=== PATIENT | female | born 1995 | race Caucasian/White ===

== ENCOUNTER → 2018-06-15 15:31 | Outpatient (CLI) | payer OTHER, SELFPAY ==
[2018-06-15 16:07] LABS: ROM Internal Control Test YES-OK TO RESULT pt. (Internal QC); ROM Patient Test Negative (Negative)
== END ==
LOC: LABSPEC 15:32
PROVIDERS: Visit Provider Obstetrics & Gynecology
DX: Z34.83 Encounter for supervision of other normal pregnancy, third trimester (principal)
CPT/HCPCS: 84112

== ENCOUNTER → 2018-06-19 15:20 | Outpatient (CLI) | payer OTHER, SELFPAY ==
[2018-06-19 15:51] LABS: ROM Internal Control Test YES-OK TO RESULT pt. (Internal QC); ROM Patient Test Negative (Negative)
== END ==
PROVIDERS: Visit Provider Obstetrics & Gynecology
DX: Z34.83 Encounter for supervision of other normal pregnancy, third trimester (principal)
CPT/HCPCS: 84112

== ENCOUNTER 2018-07-08 13:15 | Outpatient (CLI) | payer OTHER, MEDICAID, SELFPAY ==
[2018-07-08 14:44] VITALS: BMI 27.8
--- NOTE | 2018-07-10 07:58 | OB.TRI.NOTE ---
History of Present Illness Date of Service: 07/08/18 Was patient seen by the physician?: No Reason For Visit: R/O LABOR Date of Service: 07/08/18 Final FLAVIO: 07/12/18 Gestational age: 39 Weeks and 3 Days History of Present Illness: 22 yo female presents for labor check after working. States cramping. No vaginal bleeding. no ROM. Allergies No Known Allergies Allergy (Verified 07/08/18 14:45) Physical Exam Cervix Dilation (cm): 1 - no change after observation Station: -2 NST - FHR Rate Baby A Baseline: 110-120 avg variability. Accels to 160s Variability:: Moderate Accelerations:: 15 x 15 Decelerations:: None NST Reactive:: Yes, Appropriate for gestational age FHR Category:: Category I Uterine Activity:: UCs q 1 1/2 - 7 mins Impression/Plan 38 3/7 wk EGA. reactive NST False labor Home, rest and comfort measures reviewed. RTO as planned Return to [facility] if inc s/sx of labor.
== END 2018-07-08 15:00 | disposition home or self-care (01) ==
LOC: WPOUT 13:43 → WP 13:45
PROVIDERS: Family Provider Family Medicine; PCP Family Medicine; Visit Provider Obstetrics & Gynecology
DX: O47.1 False labor at or after 37 completed weeks of gestation (principal); Z3A.39 39 weeks gestation of pregnancy
CPT/HCPCS: 59025; 59050; 99218; G0378

== ENCOUNTER 2018-07-14 02:15 | Outpatient (CLI) | payer OTHER, MEDICAID, SELFPAY ==
[2018-07-14 02:29] VITALS: BMI 28.2
[2018-07-14 04:00] VITALS: RESP 18
--- NOTE | 2018-07-21 01:52 | OB.TRI.NOTE ---
History of Present Illness Date of Service: 07/14/18 Was patient seen by the physician?: No Reason For Visit: R/O LABOR Final FLAVIO: 07/12/18 Gestational age: 40 Weeks and 2 Days History of Present Illness: 22yo G1 @ 40 2/7wga with Cat I FHR -SVE unchanged x 2 -d/c home Allergies No Known Allergies Allergy (Verified 07/15/18 22:42) Physical Exam Vitals: Vital Signs Resp 18 07/14/18 04:00 NST - FHR Rate Baby A Baseline: 125 Variability:: Moderate Accelerations:: 15 x 15 Decelerations:: None NST Reactive:: Yes FHR Category:: Category I Uterine Activity:: 1/10 min
== END 2018-07-14 04:00 | disposition home or self-care (01) ==
LOC: WPOUT 02:26 → WP 02:26
PROVIDERS: Family Provider Family Medicine; PCP Family Medicine; Visit Provider Obstetrics & Gynecology
DX: O47.1 False labor at or after 37 completed weeks of gestation (principal); Z3A.40 40 weeks gestation of pregnancy
CPT/HCPCS: 59025; 59050; 99218; G0378

== ENCOUNTER 2018-07-15 22:55 | Inpatient (IN) | payer OTHER, MEDICAID, SELFPAY ==
[2018-07-15 22:39] VITALS: BMI 27.8
[2018-07-15 22:56] LABS: ROM Internal Control Test YES-OK TO RESULT pt. (Internal QC); ROM Patient Test POSITIVE (Negative)
[2018-07-15] MEDS: Lactated Ringers 1,000 ML 50 ML IV (23:23)
[2018-07-15 23:35] LABS: Hematocrit 31.7 % (37-47); Hemoglobin 10.6 g/dl (12.0-15.0); Mean Corp Hgb Conc 33.4 g/gl (32-36); Mean Corpuscular Volume 89.8 fL (81-99); Platelet Count 281 K/mm3 (150-450); RBC Distribution Width CV 13.4 % (11.6-14.6); RBC Distribution Width SD 43.7 fl (35.1-43.9); Red Blood Count 3.53 M/mm3 (4.2-5.4); White Blood Count 12.4 K/mm3 (4.4-11.0)
[2018-07-15 23:37] LABS: Scan Indicated on CBC? Y/N NO
[2018-07-16] MEDS: Lactated Ringers 1,000 ML 50 ML IV ×3 (01:15→11:41)
[2018-07-16] MEDS: fentaNYL-bupivacaine (epidural) 100 ML BAG EPIDURAL ×3 (01:52→11:41)
[2018-07-16] MEDS: Oxytocin 30 units/NS 500 ml 30 UNITS/500 ML IV.SOLN IV (03:04)
[2018-07-16] MEDS: Mag Hydrox/Al Hydrox/Simeth 30 ML UDC PO (03:48)
[2018-07-16] MEDS: Ondansetron 4 MG/2 ML Vial IV (10:16)
[2018-07-16] MEDS: Acetaminophen 325 MG Tablet PO (10:56)
--- NOTE | 2018-07-16 13:40 | PLAC_PTH ---
PATIENT: LIZ VALDES LOC: WP U#:[id number] AGE/SX: ROOM: WP008 RE07/15/[address]: Dr. Jak Jack MD : 1995 BED: 1 DIS: 07/18/2018 SPEC #: [id number] RECD: 07/16/18 14:27 STATUS: FRANCISCO REQ #: [id number] LATRELL: 07/16/18 13:[address]: Jak Jack DEPT: SURGICAL PATHOLOGY RECD BY: Tomasz Sahu ENTERED: 07/17/18 08:03 SP TYPE: PLACENTA OTHR DR: Dr. Dunia Hawthorne, DO Tissues: Placenta, NOS Procedures: Surgery Specimen Level V HEADER OPERATION: Vaginal delivery PRE-OP DIAGNOSIS: Suspected chorioamnionitis and meconium TISSUE SUBMITTED: Placenta MICROSCOPIC DIAGNOSIS Placenta: Placental disc - third trimester placenta (431 gm). - Focal acute vasculitis of subamniotic blood vessels. - Focal area of peripheral infarction (2.5 cm in greatest dimension). Membranes ? acute chorioamnionitis. Umbilical cord - three blood vessels and acute funisitis. SJ:sandy 07/19/18 MICROSCOPIC DESCRIPTION Slides are reviewed. GROSS DESCRIPTION SPECIMEN: PLACENTA / CLINICAL INFORMATION: A. Weight: 3.042 kg B. Gestational Age: 40 weeks C. Sex: Female PLACENTAL WEIGHT (POST FIXATION): 431 gm PLACENTAL DIMENSIONS: 19 x 14 x 3 cm PLACENTAL SHAPE: Usual ovoid PLACENTAL WEIGHT FOR GESTATIONAL AGE: Within 10-99th percentile. MEMBRANES - Present A. Insertion: Marginal B. Site of rupture from edge: At edge of placental disc C. Color of membrane: Moffett-alcantara D. Abnormalities: None UMBILICAL CORD ? Present, a clamp is noted in the middle portion of the umbilical cord. A. Color: Moffett-alcantara B. Insertion: Central C. Length: 47 cm D. Diameter: 1 cm E. Number of vessels: Three F. Abnormalities: None PLACENTAL DISC - Present A. Color of surface: Moffett-alcantara B. surface abnormalities: A focal area of submembranous blood clot is noted occupying one-third surface of the placenta. C. Maternal cotyledons: Intact with minimal tears D. Attached retro placental clot: No clot E. Cut surface: Dark red and spongy F. Lesions: Sections reveal a focal moffett, indurated area in the peripheral portion of the placenta measuring 2.5 cm in greatest dimension. G. Separate clot: Absent SECTIONS SUBMITTED: 1. Membrane roll 2. Cord, maternal end 3. Cord, end 4. Placental disc, and maternal surfaces, lesion 5. Placental disc, and maternal surfaces 6. Placental disc, and maternal surfaces SCOTTY:sandy 07/18/18 TC:2 CPT: 08152
[2018-07-16] MEDS: Oxytocin 30 units/NS 500 ml 30 UNITS/500 ML IV.SOLN 334 UNITS IV (13:42)
--- NOTE | 2018-07-16 14:04 | PCM.OB.VAG ---
- Problem List (1) Active labor at term Status: Acute Vaginal Delivery Maternal Presentation: Active Labor, Spontaneous Rupture of Membranes Presents at 40w4d ega with SROM at 2100 on 07/15. Uncomplicated . Amniotic Membrane Rupture Type: Spontaneous at home Rupture of Membrane time: 2100 Amniotic Fluid Description: Clear Final FLAVIO: 07/12/18 Final FLAVIO Source: US <20 weeks Gestational age: 40 Weeks and 4 Days doctor who attended delivery (if requested by OB): Rasheeda Ventura Date of Procedure: 07/16/18 Pre-Operative Diagnosis: Labor Post-Operative Diagnosis: same Surgery/ Procedure Performed: Spontaneous Vaginal Delivery Anesthesiologist: William Tay Type of Anesthesia: Epidural Description of Procedure: Juan presented at 40w3d ega with SROM at home. She was 2 cm dilated on admission. Over 13 hours progressed to FD then pushed for less than an hour to deliver a live female . She had developed a fever with tmax of 101.8 in hour before delivery. She was started on ampicillin. Baby did not show signs of chorioamnionitis with no tachycardia noted. There was thick meconium present at delivery. At delivery the mouth was suctioned with a bulb suction. Dr. Ventura was called. Apgars were 7/9. The placenta was delivered spontaneously intact with a centrally located 3VC. It appears meconium stained. Cultures were collected from the a vein of the placental membrane surface. The placenta was sent to pathology for studies. The uterus contracted well. Inspection revealed an intact cervix, upper vagina and perineum. A small first degree posterior tear was repaired with 2-0 vicryl. Presentation: Vertex Placental Delivery Description: Spontaneous Placenta Disposition: Sent to Pathology Percentage of Placenta Abruption: 0 Cord Vessel Description: 3 Vessels Nuchal Cord Compression: Without compression Cord Entanglement: None Drain: Uriostegui to straight drain Estimated Blood Loss: 200cc Infant A gender: Female (1 minute): 7 (5 minute): 9 Episiotomy Description: None Laceration: Midline, Vaginal Extension/lac, 1st degree Medications given after delivery: IV Pitocin Complications: None
[2018-07-16] MEDS: Oxytocin 30 units/NS 500 ml 30 UNITS/500 ML IV.SOLN 167 UNITS IV (14:12)
--- NOTE | 2018-07-16 14:15 | PCM.DCVAG ---
Discharge Diet: No Restrictions Discharge Activity: Return to Normal Activity, May Drive, May Shower Return to work on:: 09/15/18 May shower in (days): 0 May resume sexual activity in: 4-6 weeks Call your doctor if your incision/area has: Sudden Increased Bleeding, Increased Pain/ Swelling, Foul Smelling Discharge Call your doctor if you observe: Fever of 101 or Higher, Inability to urinate, Inability to have a bowel movement, Using more than one pad per hour, Shortness of breath, Chest pain, Calf discomfort, Uncontrolled pain Cleanse incision/area with: Soap & Water Additional Instructions: If you experience any of the following, contact your healthcare provider. Bleeding that soaks a pad every hour for 2 hours Fever 100.4 or higher Unrelieved incision or abdominal pain Swelling, redness, discharge or bleeding from your incision or episiotomy site Your incision begins to separate Problems urinating (including inability to urinate or burning while urinating). Visual changes Severe headache Flu-like symptoms Pain or redness in one of both of your breasts Pain, warmth, tenderness or swelling in your legs, especially the calf area Frequent nausea and vomiting Symptoms of depression or anxiety If you experience any of the following, call 911 or go to the nearest Emergency Room. Chest pain Problems breathing Seizure activity Partial or complete paralysis of a body part, slurred speech, weakness or drooping of the face, or a sudden inability to walk or hold your balance Allergies/Adverse Reactions: Allergies No Known Allergies Allergy (Verified 07/15/18 22:42) Medications to take at Discharge Vit Calc,Iron,Folic [ Vitamins] 1 each PO DAILY 07/14/18 Tums 07/15/18 Ibuprofen 600 mg PO Q6H PRN PRN #30 tab 07/16/18 The following prescriptions were given: Ibuprofen 600 mg PO Q6H PRN PRN #30 tab PRN Reason: pain or cramping Please Follow Up With: Stefania Mari MD When: 6 weeks Primary Care Physician: Dunia Hawthorne DO [Primary Care Provider] - Test Results: Test results from this visit will be discussed in further detail at your follow-up appointment, if applicable. Proposed Discharge Date: 07/18/18
[2018-07-16] MEDS: Dibucaine 30 GM Tube 1 APPLIC TOPICAL (17:47)
[2018-07-16 18:00] VITALS: BP 116/62; PULSE 92; RESP 16; TEMP 37.6
[2018-07-16] MEDS: Ibuprofen 600 MG Tablet PO (18:28)
[2018-07-16] MEDS: 0.9% Saline Lock 10 ML Syringe IV ×2 (18:57→23:54)
[2018-07-16 21:10] VITALS: BP 96/47; PULSE 96; RESP 16; TEMP 35.9
[2018-07-16] MEDS: Acetaminophen 500 MG Tablet 1000 MG PO (21:34)
[2018-07-16 23:50] VITALS: BP 106/54; PULSE 74; RESP 16; TEMP 36.1
[2018-07-17 03:15] VITALS: BP 92/47; PULSE 74; RESP 16; TEMP 36.3
[2018-07-17] MEDS: 0.9% Saline Lock 10 ML Syringe IV ×6 (05:50→17:53)
[2018-07-17] MEDS: Ibuprofen 600 MG Tablet PO ×2 (05:52→12:34)
--- NOTE | 2018-07-17 06:48 | PCM.PN.OB ---
Patient Problems: Active and Suspected Problems Active labor at term (Acute) Subjective: No specific complaints. Bleeding light. Objective: Afeb since delivery. Hgb stable. - Physical Exam General: Alert, Oriented x3, Cooperative, No apparent distress Lungs: Clear to auscultation, Normal air movement Cardiovascular: Regular rate, Regular Rhythm Abdomen: Soft, Non Tender, Non-Distended, - - Fundus firm nontender Extremities: No edema, No Calf Tenderness Skin: No rashes Neurological: Neuro grossly intact Psych/Mental Status: Normal Affect Comment: Lochia light Vital Signs Temp Pulse Resp BP 97.3 F L 74 16 92/47 L 07/17/18 03:15 07/17/18 03:15 07/17/18 03:15 07/17/18 03:15 Oxygen Delivery Method Room Air Weight: 152 lb 1.903 oz Body Mass Index (BMI) 27.8 Intake and Output for Last 24 Hours 07/15/18 07/16/18 07/17/18 23:59 23:59 23:59 Intake Total 6510.5 / 6510.5 Output Total 3600 / 3600 Balance 2910.5 / 2910.5 Laboratory Tests Past 24 Hrs 07/16/18 07/17/18 15:07 05:56 WBC Pending RBC Pending Hgb Pending Hct Pending MCV Pending MCH Pending MCHC Pending RDW Pending RDW Differential Pending Plt Count Pending Screen NEGATIVE Baby's Blood Type O POSITIVE Baby's MAEGAN NEGATIVE Medical Necessity - Tobacco Use Smoking Status: Current every day smoker Assessment/Plan All Active Problems Active labor at term (Acute) Doing well on PP day#1. Afeb since delivery. WBC pending as of this note. Would continue ampicillin until 24 hours PP. Continue routine PP care.
[2018-07-17 08:39] VITALS: BP 111/64; PULSE 74; RESP 16; TEMP 36.7; O2SAT 99
[2018-07-17] MEDS: Prenatal Vits Tablet 1 TABLET PO (12:10)
[2018-07-17 12:16] VITALS: BP 120/76; PULSE 78; RESP 16; TEMP 36.6; O2SAT 98
[2018-07-17 15:26] LABS: Hematocrit 26.5 % (37-47); Hemoglobin 8.9 g/dl (12.0-15.0); Mean Corp Hgb Conc 33.6 g/gl (32-36); Mean Corpuscular Hgb 30.8 pg (27.0-32.0); Mean Corpuscular Volume 91.7 fL (81-99); Mean Platelet Vol. 10.8 fl (6.2-12.0); Platelet Count 237 K/mm3 (150-450); RBC Distribution Width CV 13.2 % (11.6-14.6); RBC Distribution Width SD 42.4 fl (35.1-43.9); Red Blood Count 2.89 M/mm3 (4.2-5.4); White Blood Count 21.7 K/mm3 (4.4-11.0)
[2018-07-17 15:41] LABS: Scan Indicated on CBC? Y/N NO
[2018-07-17 16:48] VITALS: TEMP 36.9
[2018-07-17 20:30] VITALS: BP 109/58; PULSE 72; RESP 18; TEMP 36.4; O2SAT 96
[2018-07-17] MEDS: Acetaminophen 500 MG Tablet 1000 MG PO (20:41)
[2018-07-18] MEDS: 0.9% Saline Lock 10 ML Syringe IV ×2 (00:21→05:31)
[2018-07-18 02:05] VITALS: BP 112/64; PULSE 71; RESP 16; TEMP 36.6; O2SAT 96
--- NOTE | 2018-07-18 08:25 | PCM.PN.OB ---
Patient Problems: Active and Suspected Problems Active labor at term (Acute) Subjective: No issues overnight. She is sore from uterine cramping, but this is tolerable. She is bottle feeding. Perineal soreness minimal. Objective: AVSS - Physical Exam General: Alert, Oriented x3, Cooperative, No apparent distress HEENT: Atraumatic, Normocephalic Lungs: Clear to auscultation, Normal air movement Cardiovascular: Regular rate, Regular Rhythm Abdomen: Bowel Sounds Present, Soft, Non Tender, Non-Distended, - - Fundus firm and nontender at umbilicus Extremities: No edema, No Calf Tenderness Neurological: Neuro grossly intact Psych/Mental Status: Normal Affect, Appropriate, Alert and oriented to time, place, person, mood and affect Vital Signs Temp Pulse Resp BP Pulse Ox 97.9 F 71 16 112/64 96 07/18/18 02:05 07/18/18 02:05 07/18/18 02:05 07/18/18 02:05 07/18/18 02:05 Oxygen Delivery Method Room Air Weight: 69 kg Body Mass Index (BMI) 27.8 Intake and Output for Last 24 Hours 07/16/18 07/17/18 07/18/18 23:59 23:59 23:59 Intake Total 6510.5 / 6510.5 Output Total 3600 / 3600 Balance 2910.5 / 2910.5 Laboratory Tests Past 24 Hrs 07/17/18 05:56 WBC 21.7 H RBC 2.89 L Hgb 8.9 L Hct 26.5 L MCV 91.7 MCH 30.8 MCHC 33.6 RDW 13.2 RDW Differential 42.4 Plt Count 237 MPV 10.8 Medical Necessity - Tobacco Use Smoking Status: Current every day smoker Assessment/Plan All Active Problems Active labor at term (Acute) 22yo PPD#2 s/p doing well. -O Negative, infant Rh positive - for Rhogam -Rubella immune -Bottlefeeding -Routine care -d/c home today
[2018-07-18 08:30] VITALS: BP 118/78; PULSE 86; RESP 15; TEMP 37; O2SAT 96
[2018-07-18] MEDS: Acetaminophen 500 MG Tablet 1000 MG PO (09:00)
--- NOTE | 2018-07-18 12:12 | NURSING ---
Agree with charting per ACole RN
[2018-07-18 13:24] VITALS: BP 121/78; PULSE 75; RESP 16; TEMP 36.8; O2SAT 99
--- NOTE | 2018-07-18 14:11 | CASEMGMT ---
Social Work Assessment Labor and Delivery Unit Date of Referral: 07/17/2018 Time of Referral: 37 Referred By: Dr. Jack Date of Intervention: 07/18/2018 Time of Intervention: 1130 Reason for Referral: PHQ9 score between 5-14; patient/mother of baby (MOB) scorig 13. History obtained from: medical record and MOB Larissa Dempsey Household composition: MOB and reported father of baby (FOB) live in a home they rent since about February 2018. MOB plans to take to this home at discharge. MOB reports home situation is safe and adequate. Patient's parent/guardian status: MOB who is age 21 and FOB Gregg Nassar who is age 23 have been together for a year but have known each other for about 8 years. MOB denies any form of abuse in this relationship. Baby born this admission is the first child for both parents. is to be named Sarina Nassar. Medical History: MOB is G1, P0 to 1 after delivering Sarina. care started at 12 weeks gestation. Sarina delivered weighing 6 pounds 15 ounce, Apgars 7 and 9 at 1 and 5 minutes of life. Educational Status: MOB just graduated from [employer] with an associate degree in business and accounting. MOB denies any issues with reading, writing, or learning comprehension. 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 FOB works for [employer] in the electrical department. Infant Supplies: MOB reports to have car seat, bassinet, crib, bottles, clothing, diapers, and wipes to get started. MOB reports plan to purchase formula at time of discharge. Childcare/Caregiver(s): MOB plans to be primary caregiver, will be taking between 6-12 weeks off work. MOB reports upon return to work may work an off shift from [employer] so that will not have to worry about childcare. Transportation: Denies any issues. Programs/Agencies Involved: MOB reports connection with [facility] for food and medical and then with WIC. MOB denies any other agency involvement. Children Services/Legal Issues: MOB denies any past or present history. Behavioral Health Issues: Mental Health History: MOB reports in middle school started counseling, completing an intensive outpatient program at [facility] related to MOB attempting suicide (by overdose of her mothers pills). MOB reports had some situational trauma at the time, which MOB believes contributed to the suicide attempt. MOB reports the group therapy helped a lot, even more so than medications. MOB denies any thoughts of suicide, plan, or intent since that time about 10 years ago. MOB reports depression lasted through middle school and high school. Family History: MOB denies any history in family of mental health diagnoses or depression. Substance Use History: MOB reports history of drinking alcohol, describing this as a what college kids normally do. MOB denies any alcohol consumption after knowledge of . MOB also denies that anyone has ever voiced thought that MOB having a problem with alcohol or substances. MOB denies that has ever felt addicted or dependent on alcohol. MOB admits to past marijuana usage, once again attributing to something that kids do in college. MOB denies use after finding out about . MOB denies any history of other illicit drug use including methamphetamines, heroin, or cocaine. MOB reports was smoking tobacco daily but was working on cessation during this . Drug Screens: MOB did have a urine drug screen done 01-03-18 which came back negative. Depression Screening during and after delivery: care record indicates MOB with an [place] Depression screen in December 2017, with a score of 14 (12 or higher is indicative of possible depression). MOB reports at the time, some people were encouraging MOB to consider termination of , which MOB reports is against MOBs beliefs. MOB reports based on situational stress once again (comparing to depression experienced as an adolescent), this created some feelings of depression during . Addressed recent mood in the last 2 weeks and PHQ9 depression scale done during this admission. MOB reports did have a hard time over the last two weeks, becoming more upset and down due to watching others have their babies before their due dates, and that MOB went past due date, so started to think that something was wrong or that MOB was doing something wrong. MOB reports became tired, had a hard time concentrating, and physically was not feeling well with the progression of the . MOB describes that became sound sensitive and had a hard time sleeping and that appetite was directly related to how MOB felt physically (bloated and constipation). MOB reports that started to get fidgety and just ready for the delivery to occur. MOB reports currently to feel happy, and that feels happy about the baby too. MOB reports to feel a positive connection to the baby. Addressed with MOB, question 9 of the PHQ9, addressing thoughts of being better off or hurting self in some way. MOB answered this as more than half days over the last two weeks. MOB states that does not remembering answering the question this way, that maybe had confused this for the past, that yes in the past MOB had thoughts of suicide about 10 years ago but nothing since. MOB adamantly denies to this functional tester typewriters thoughts of suicide, dying, or intent to kill self during this or currently. No thoughts of harm to other identified either. This functional tester typewriters provided MOB with an [place] Scale, which MOB agreed to complete, to cross reference original screening tool done during to current identified feelings. See attached link for details of the [place], but MOBs score is and 8, which is reduced from a 14. MOB also denies in this screening tool any thoughts in the last 7 days about suicide. MOB is forward thinking about the baby, knowing that cannot think just about self anymore, and has goals of one day going back to college to get her EFREN. Family/Social Stressors: MOB moved from parental home in February, moving in with FOB. also unplanned, but MOB reports accepted. MOB lost a lifelong friend related to differing feelings about MOB going through with the versus termination. MOB denies any current stressors currently. Support Systems: MOB reports to have a large family, to be the last of 9 kids between full siblings and step siblings. MOB reports to have family who are willing to help. MOBs father does not work so can come over to help whenever needed, as well as MOBs mother when not working. FOB is also willing to help MOB when not working. MOB reports primary emotional support person is MOBs mother, though MOB reports can talk to FOB about how MOB is feeling. Depression/Shaken Baby/Safe Sleeping: ASSESSMENT: Met with MOB and FOB together, introducing do self. FOB offered to leave once found out at some point would want to talk to MOB alone. Assessment completed with MOB, and then at the end FOB came in and reviewed resources as well as some signs/symptoms for FOB to look for regarding depression and anxiety. During time with MOB, MOB was pleasant, cooperative, and seemingly open to conversation. MOB reports to have needed supplies for baby, and reports that although FOB must go back to work tomorrow, MOB has access to family members who will be stopping by to help MOB out with the baby. MOB reports to feel support system is adequate. MOB reports to be happy about the baby and to have a positive mood currently. MOB denies consistently that does not have any thoughts, plans, intent for suicide, nor has had any such thoughts during this , and that the last time MOB considered suicide was 10 years ago and related to situational trauma MOB experienced. MOB reports plan and intent to talk to FOB and to MOBs mother if feeling stressed, and reports if depressive symptoms change or worsen would go back to counseling, but at this time feels that mood is leveling out now that had the baby and does not feel that counseling is necessary. MOB able to give appropriate responses on shaken baby and safe sleeping. Educated MOB to depression and anxiety risk, as well as importance of seeking and asking for help. MOB voiced understanding, reporting that knows that it is important to take care of self as it is not just about me anymore. When social media analyst talked with FOB, FOB expressed understanding that depression is a real thing and acknowledges understanding that may see sings in MOB before MOB, and that it will be important to help support MOB to get help. Note, observed both MOB and FOB to attend to baby. Both parents were gentle, looked at baby, and overall appropriate. Both parents talked to baby as well in a gentle way. Observed FOB feed the baby, and FOB ask MOB for help in adjusting the baby. MOB and FOB appearing relaxed with one another. MOB held good eye contact with this functional tester typewriters and affect and mood appropriate. PLAN: MOB and baby discharging home today. MOB denies thoughts, plans, intent for suicide, able to identify support system, and reports intent to let family know if having a hard time. MOB is connected with WIC and S. MOB accepted resource information for counseling including [facility]. Provided MOB with depression packet including online supports Provided [facility] packet Information given on Help Me [facility], which MOB and FOB plan to consider and self-refer if interested in the future. No other services requested or indicated. -MARY Cross, KIERAN
[2018-07-20 15:25] LABS: Pathology Specimen OB SEE PATHOLOGY REPORT
== END 2018-07-18 13:56 | disposition home or self-care (01) | DRG 775 ==
LOC: WPOUT 22:58
PROVIDERS: Admitting Provider Obstetrics & Gynecology; Family Provider Family Medicine; PCP Family Medicine; Visit Provider Obstetrics & Gynecology
DX: O42.02 Full-term premature rupture of membranes, onset of labor within 24 hours of rupture (principal); O41.1230 Chorioamnionitis, third trimester, not applicable or unspecified; O99.324 Drug use complicating childbirth; O70.0 First degree perineal laceration during delivery; O77.0 Labor and delivery complicated by meconium in amniotic fluid; O99.334 Smoking (tobacco) complicating childbirth; F17.210 Nicotine dependence, cigarettes, uncomplicated; O99.344 Other mental disorders complicating childbirth; F32.9 Major depressive disorder, single episode, unspecified; F12.90 Cannabis use, unspecified, uncomplicated; O99.62 Diseases of the digestive system complicating childbirth; K21.9 Gastro-esophageal reflux disease without esophagitis; Z3A.40 40 weeks gestation of pregnancy; Z37.0 Single live birth
CPT/HCPCS: 59025; 59050; 84112; 85027; 85461; 86850; 86900; 88307; 90384; 99218; J7120; A4216; G0378; J2405; J2790

== ENCOUNTER 2022-04-16 09:19 | Emergency (ER) | payer OTHER, SELFPAY ==
[2022-04-16 09:20] VITALS: BP 150/96; PULSE 104; RESP 16; TEMP 36.7; O2SAT 99; BMI 21.0
--- NOTE | 2022-04-16 09:52 | CT_ITS ---
STUDY: CT ABDOMEN AND PELVIS WITH CONTRAST REASON FOR EXAM: Female, 26 years old. Left lower quadrant abdominal pain RADIATION DOSAGE (If Supplied By Facility): CTDIvol = ( 7.75 ) mGy, DLP = ( 255.52 ) mGycm TECHNIQUE: Transaxial images were obtained from the dome of the diaphragm to the symphysis pubis without oral contrast. IV 75mL Isovue-300 was administered. Sagittal and coronal images were reconstructed. Individualized dose optimization techniques were used for this CT. COMPARISON: None. FINDINGS: The visualized lung bases are unremarkable. The visualized portions of the heart are within normal limits. Normal liver. Normal gallbladder and extrahepatic biliary system. Normal spleen. Normal pancreas. Normal bilateral adrenal glands. Normal right kidney. There is a 6.3 mm calculus at the left ureterovesical junction causing a moderate degree of left hydronephrosis and hydroureter. Normal visualized stomach. Normal small intestine. Normal colon. The appendix is visualized and appears normal. Normal abdominal aorta. Normal inferior vena cava. Normal retroperitoneum. Normal urinary bladder. There is a 5.7 cm x 4.5 cm well-defined fluid collection in the lower pelvis in the midline. This may represent fluid within a distended vagina. Correlation with ultrasound is recommended. Calcified phleboliths are seen within the pelvis. Normal abdominal wall. Normal osseous structures. CT/Abdomen/Pelvis W IV Cont ONLY IMPRESSION: 6.3 mm calculus at the left ureterovesical junction causing a moderate degree of left hydronephrosis and left hydroureter. 5.7 cm x 4.5 cm well-defined fluid collection in the lower pelvis in the midline. This most likely represents fluid within a distended vagina. Correlation with ultrasound is recommended. Electronically Signed: Giacomo Burt MD at 11:01 EDT ,
--- NOTE | 2022-04-16 09:57 | EDS_ITS ---
HPI HPI - GI History of Present Illness Chief Complaint: Abd Pain Narrative Narrative: 26-year-old female presenting with left flank pain. She states she started having symptoms of a UTI earlier this week and admits to urinary urgency and frequency. Patient states she does get UTIs periodically. Patient states that her abdominal pain has been worsening in the left lower quadrant. She states she is having bowel movements and not having diarrhea. No fevers. Patient does admit to a history of endometriosis. She does not believe she is and states that she is sexually active with condoms. She denies vaginal complaints. No fevers or chills. PFSH PFSH Medical History no medical history Home Medications prenat.vits,evangelina,[id number]-irbp-dptro [ Vitamin] 1 ea PO DAILY 07/14/18 [History Last Taken 07/13/18 21:00] Tums 07/15/18 [History Last Taken 07/15/18 21:00] ibuprofen 600 mg PO Q6H PRN PRN #30 tab 07/16/18 [Rx Last Taken Unknown] ondansetron 4 mg PO Q8H PRN #14 tab 04/16/22 [Rx Last Taken Unknown] oxycodone-acetaminophen [Percocet] 1 tab PO Q6H PRN 3 Days #12 tab 04/16/22 [Rx Last Taken Unknown] Allergy/AdvReac Type Severity Reaction Status Date / Time latex Allergy Rash Verified 04/16/22 09:20 Social History Smoking Status: Current every day smoker tobacco type: cigarettes ROS ROS ED Constitutional Constitutional ED: Denies chills or fever(s) ENT ENT ED: Denies rhinorrhea or sore throat Cardiovascular Cardiovascular: Denies chest pain or palpitations Respiratory/Chest Respiratory/Chest: Denies cough or dyspnea Gastrointestinal Gastrointestinal: Reports abdominal pain and nausea; Denies constipation, diarrhea or vomiting Genitourinary Genitourinary ED: Reports dysuria, hematuria and urinary frequency Musculoskeletal Musculoskeletal: Reports back pain Integumentary Denies Abrasions or rash Neurologic Neurologic: Denies headache(s) or weakness Psychiatric Psychiatric: Denies anxiety or depression EXAM Physical Exam Const Vital Signs: 04/16/22 09:20 04/16/22 12:25 04/16/22 15:25 Temperature 98.1 F Temperature Source Temporal Pulse Rate 104 H 88 68 Respiratory Rate 16 16 15 Blood Pressure 150/96 H 132/73 H 123/77 H Blood Pressure Mean 114 92 Pulse Ox 99 99 98 Oxygen Delivery Method Room Air Positive well nourished General Appearance ED: NAD; Negative for pallor HEENT Reports moist mucous membranes normocephalic and atraumatic Eyes PERRL and EOMs intact bilaterally Resp normal respiratory effort and clear to auscultation bilaterally Cardio regular rhythm Rate: tachycardic GI Palpation: soft and tender LLQ; Negative for guarding or rigid Back/Spine General Back: CVA tenderness left Neuro CN's II-XII intact bilaterally Sensorium / Orientation: alert, oriented to person and oriented to place Psych mental status grossly normal and thought process normal Skin General Skin Exam: Negative for jaundice or pallor Lesions: no lesions Rashes: no rashes MDM MDM MDM Narrative Medical decision making narrative: Patient presenting with left flank pain and left-sided abdominal pain. She does not report constipation. No fevers or chills. She is concerned she had a UTI secondary to urinary frequency and hematuria. CBC obtained shows no leukocytosis. Hemoglobin hematocrit are stable. Platelets within normal limits. Renal function electrolytes are normal. LFTs within normal limits. Serum test is negative. Urinalysis positive for occult blood but no evidence of infection. Patient treated with morphine, Zofran and had good relief of her pain. CT of the abdomen pelvis is performed which shows a 6.3 mm UVJ stone on the left. There is also some pelvic fluid noted with recommendation to get a pelvic ultrasound. This was performed and other than the UVJ stone there is no acute process seen. Patient was given oxycodone in the ER. She is given a prescription for oxycodon e and Zofran for home. I will have her follow-up with urology. She was given return precautions. Impression: 1. Left 6.3 mm UVJ stone 2. Left-sided hydronephrosis 3. Left-sided hydroureter 4. Hematuria Lab Data Attestation: I reviewed the patient's lab results. Labs: Laboratory Results - last 24 hr 04/16/22 04/16/22 04/16/22 10:00 10:00 10:00 WBC 4.3 L RBC 4.34 Hgb 14.0 Hct 40.0 MCV 92.2 MCH 32.3 H MCHC 35.0 RDW Std Deviation 39.9 RDW Coeff of Carol 11.9 Plt Count 228 MPV 9.7 Immature Gran % (Auto) 0.500 Neut % (Auto) 65.3 Lymph % (Auto) 25.4 [place] % (Auto) 8.1 Eos % (Auto) 0.5 Baso % (Auto) 0.2 Absolute Neuts (auto) 2.8 Absolute Lymphs (auto) 1.10 Nucleated RBC % 0 Sodium 140 Potassium 3.8 Chloride 108 H Carbon Dioxide 27.0 Anion Gap 5 BUN 8 Creatinine 0.77 Estim Creat Clear Calc 88.33 Est GFR (MDRD) Af Amer 117 Est GFR (MDRD) Non-Af 97 BUN/Creatinine Ratio 10.4 Glucose 100 Calcium 9.3 Total Bilirubin 0.40 AST 11 L ALT 15 Alkaline Phosphatase 58 Total Protein 7.4 Albumin 4.3 Globulin 3.1 Albumin/Globulin Ratio 1.4 Serum , Qual NEGATIVE Urine Color Urine Clarity Urine pH Ur Specific [place] Urine Protein Urine Glucose (UA) Urine Ketones Urine Occult Blood Urine Nitrite Urine Bilirubin Urine Urobilinogen Ur Leukocyte Esterase Urine RBC Urine WBC Ur Squamous Epith Cells Urine Bacteria Urine Mucus 04/16/22 10:00 WBC RBC Hgb Hct MCV MCH MCHC RDW Std Deviation RDW Coeff of Carol Plt Count MPV Immature Gran % (Auto) Neut % (Auto) Lymph % (Auto) Charlotte % (Auto) Eos % (Auto) Baso % (Auto) Absolute Neuts (auto) Absolute Lymphs (auto) Nucleated RBC % Sodium Potassium Chloride Carbon Dioxide Anion Gap BUN Creatinine Estim Creat Clear Calc Est GFR (MDRD) Af Amer Est GFR (MDRD) Non-Af BUN/Creatinine Ratio Glucose Calcium Total Bilirubin AST ALT Alkaline Phosphatase Total Protein Albumin Globulin Albumin/Globulin Ratio Serum , Qual Urine Color Yellow Urine Clarity Sl. Cloudy Urine pH 8.0 Ur Specific [place] 1.015 Urine Protein 30 H Urine Glucose (UA) Normal Urine Ketones Negative Urine Occult Blood 250 H Urine Nitrite Negative Urine Bilirubin Negative Urine Urobilinogen Normal Ur Leukocyte Esterase 100 H Urine RBC 0 SEEN Urine WBC 0-5 SEEN Ur Squamous Epith Cells 10-25 SEEN Urine Bacteria 1+ Urine Mucus 0 SEEN Radiography Diagnostic Testing: Clinical Impression(s) from Imaging Studies Abdomen/Pelvis CT 04/16/22 09:52 IMPRESSION: 6.3 mm calculus at the left ureterovesical junction causing a moderate degree of left hydronephrosis and left hydroureter. 5.7 cm x 4.5 cm well-defined fluid collection in the lower pelvis in the midline. This most likely represents fluid within a distended vagina. Correlation with ultrasound is recommended. Electronically Signed: Giacomo Burt MD at 11:01 EDT , Transvaginal US 04/16/22 11:39 IMPRESSION: Cognition and distal portion of the left ureter causing left hydronephrosis and left hydroureter. Electronically Signed: Giacomo Burt MD at 12:53 EDT , Discharge Plan Triage Chief Complaint: Abd Pain ED Provider: Kirit Jorgensen Dx/Rx/DC Orders Instructions: ED Kidney Stone w/ Colic Prescriptions: New oxycodone-acetaminophen [Percocet] 5-325 mg tablet 1 tab PO Q6H PRN (Reason: pain) 3 Days Qty: 12 RF: 0 ondansetron 4 mg tablet,disintegrating 4 mg PO Q8H PRN (Reason: nausea and vomiting) Qty: 14 RF: 0 No Action prenat.vits,evangelina,nvv-kctb-[id number] [ Vitamin] 1 EACH tablet 1 ea PO DAILY RF: 0 Tums RF: 0 ibuprofen 600 MG tablet 600 mg PO Q6H PRN PRN (Reason: pain or cramping) Qty: 30 RF: 1 Primary Care Provider: Dunia Hawthorne Referrals: Kindra Martinez MD [STAFF PHYSICIAN] - As soon as possible Dunia Hawthorne DO [Primary Care Provider] - Disposition Disposition: Home, Self Care Discharge Date/Time: 04/16/22 15:25
[2022-04-16] MEDS: Ondansetron 4 MG/2 ML Vial IV (10:11)
[2022-04-16] MEDS: Morphine 4 MG/ML Syringe IV (10:11)
[2022-04-16] MEDS: 0.9% Normal Saline 1,000 ML 1000 ML IV (10:12)
[2022-04-16 10:21] LABS: Mucous, Urine 0 SEEN /hpf (<or=2+); Red Blood Cells-Urine 0 SEEN /hpf (0-5)
[2022-04-16 10:24] LABS: Absolute Neutrophil Count 2.8 X10^3/uL (2.0-7.7); Basophil# 0.01 X10^3/uL; Basophil% 0.2 % (0-1); Eosinophil# 0.02 X10^3/uL; Eosinophils% 0.5 % (0-5); Lymphocyte % 25.4 % (19-41); Mean Corpuscular Hgb 32.3 pg (27.0-32.0); Mean Corpuscular Volume 92.2 fL (81-99); Mean Platelet Vol. 9.7 fl (6.2-12.0); Monocyte# 0.35 X10^3/uL; Monocyte% 8.1 % (0-10); NRBC Flagged by Analyzer 0 % (0-5); Neutrophil # 2.83 X10^3/uL (2.7-7.7); Neutrophil % 65.3 % (47-70); Platelet Count 228 K/mm3 (150-450); RBC Distribution Width CV 11.9 % (11.6-14.6); RBC Distribution Width SD 39.9 fl (35.1-43.9); Red Blood Count 4.34 M/mm3 (4.2-5.4); White Blood Count 4.3 K/mm3 (4.4-11.0)
[2022-04-16 10:25] LABS: Color, Urine Yellow (Yellow); Glucose, Dipstick Normal (Normal); Ketone-Dipstick Negative (Negative); Leukocyte Esterase-Dipstick 100 /ul (Negative); Nitrite-Dipstick Negative (Negative); Occult Blood-Urine 250 /ul (Negative); Protein-Dipstick 30 mg/dl (Negative); Specific Gravity, Urine 1.015 (1.002-1.030); Urine Bilirubin Dipstick Negative (Negative); Urine Clarity Sl. Cloudy (Clear); Urine Urobilinogen Normal (Normal)
[2022-04-16 10:30] LABS: Bacteria 1+ /hpf (None Seen); Squamous Epithelial Cells - UA 10-25 SEEN /hpf (5-10); White Blood Cells 0-5 SEEN /hpf (0-5)
[2022-04-16 10:33] LABS: Internal QC Validated? YES +Cl - CLEAR BKGD; Pregnancy, Serum, hCG Quali. NEGATIVE Negative
[2022-04-16 10:39] LABS: ALB/GLOB Ratio 1.4 RATIO (0.9-2.4); AST(SGOT) 11 U/L (15-37); Alanine Aminotransfer ALT/SGPT 15 U/L (13-56); Albumin, Serum 4.3 g/dL (3.2-5.0); Alkaline Phosphatase 58 U/L (45-117); Anion Gap 5 (5-15); BUN 8 mg/dL (7-18); BUN/Creat Ratio 10.4 RATIO (10-20); Calcium,Total 9.3 mg/dL (8.5-10.1); Chloride 108 mmol/L (98-107); Creatinine, Serum 0.77 mg/dL (0.55-1.02); EST Glomerular Filtration Rate 97 mL/min (>60); Est Glom Filt Rate - Afr Amer 117 mL/min (>60); Estimated Creatinine Clearance 88.33 ml/min; Globulin 3.1 g/dL (2.2-4.2); Glucose 100 mg/dL (74-106); Potassium 3.8 mmol/L (3.5-5.1); Protein, Total 7.4 g/dL (6.4-8.2); Sodium Level 140 mmol/L (136-145)
--- NOTE | 2022-04-16 11:39 | US_ITS ---
STUDY: ULTRASOUND OF THE FEMALE PELVIS - COMPLETE REASON FOR EXAM: Female, 26 years old. Pelvic pain. LMP: 03/28/2022. TECHNIQUE: Transvaginal TECHNICAL QUALITY: Adequate. COMPARISON: None. FINDINGS: The uterus is anteverted and is in a midline position. The uterus measures 9.5 cm x 5.3 cm x 4.2 cm. There is a Nabothian cyst of the cervix. The endometrium measures 7. mm in thickness, and is hyperechoic. There is no demonstrated endometrial mass. There is no demonstrated myometrial mass. I.U.D. - The patient does not have an I.U.D. The right ovary is visualized. The right ovary measures 3.2 cm x 3 cm x 1.9 cm. There is no right ovarian cyst or ovarian mass. There is no visualized right adnexal mass or complex lesion. There is normal arterial and normal venous vascularity. The left ovary is visualized. The left ovary measures 3.3 cm x 2.5 cm long 0.8 cm. There is no left ovarian cyst or ovarian mass. There is no visualized left adnexal mass or complex lesion. There is normal arterial and normal venous vascularity. There is minimal fluid in the cul-de-sac. There is a 1 cm x 0.5cm x 0.5 cm stone in the distal ureter with a left hydronephrosis and left hydroureter. US/Transvaginal Non- IMPRESSION: Cognition and distal portion of the left ureter causing left hydronephrosis and left hydroureter. Electronically Signed: Giacomo Burt MD at 12:53 EDT ,
[2022-04-16 12:25] VITALS: BP 132/73; PULSE 88; RESP 16; O2SAT 99
[2022-04-16] MEDS: oxyCODONE 5 MG Tablet PO (15:22)
[2022-04-16 15:25] VITALS: BP 123/77; PULSE 68; RESP 15; O2SAT 98
== END 2022-04-16 15:25 | disposition home or self-care (01) ==
PROVIDERS: Emergency Provider Student in an Organized Health Care Education/Training Program; PCP Family Medicine; Visit Provider Student in an Organized Health Care Education/Training Program
DX: N13.2 Hydronephrosis with renal and ureteral calculous obstruction (principal); F17.210 Nicotine dependence, cigarettes, uncomplicated; Z87.440 Personal history of urinary (tract) infections
CPT/HCPCS: 74177; 76830; 80053; 81001; 84703; 85025; 96361; 96374; 96375; 99284; J7030; Q9967; J2405

== ENCOUNTER → 2023-04-27 | Outpatient (CLI) | payer MEDICAID, SELFPAY ==
[2023-04-27 16:21] LABS: Absolute Lymphocyte Count 1.33 X10^3/uL (0.83-4.51); Absolute Neutrophil Count 6.3 X10^3/uL (2.0-7.7); Basophil# 0.01 X10^3/uL; Basophil% 0.1 % (0-1); Hemoglobin 13.2 g/dL (12.0-15.0); Lymphocyte # 1.33 X10^3/ul (0.83-4.51); Mean Corp Hgb Conc 35.7 g/dL (32-36); Mean Corpuscular Hgb 32.8 pg (27.0-32.0); Mean Corpuscular Volume 91.8 fL (81-99); Mean Platelet Vol. 10.1 fl (6.2-12.0); Monocyte# 0.69 X10^3/uL; Monocyte% 8.3 % (0-10); NRBC Flagged by Analyzer 0 % (0-5); Neutrophil # 6.26 X10^3/uL (2.7-7.7); Neutrophil % 75.2 % (47-70); Platelet Count 251 K/mm3 (150-450); RBC Distribution Width CV 11.3 % (11.6-14.6); RBC Distribution Width SD 38.2 fl (35.1-43.9); Red Blood Count 4.03 M/mm3 (4.2-5.4); White Blood Count 8.3 K/mm3 (4.4-11.0)
[2023-04-27 17:09] LABS: HIV - WCH Non-Reactive (Nonreactive); Hepatitis B Surface Antigen Non-Reactive (Nonreactive); Hepatitis C Antibody Non-Reactive (Nonreactive); Rubella IgG Reactive (Nonreactive); Syphilis Antibodies Non-reactive
[2023-04-29 05:07] LABS: V-Zoster IgG (Immunity) 441 index (Immune >165)
[2023-05-07 11:12] LABS: HPV Reflexed? NOT INDICATED
== END | disposition home or self-care (01) ==
LOC: WOBLAB 14:54
PROVIDERS: PCP Family Medicine; Visit Provider Obstetrics & Gynecology
DX: N91.2 Amenorrhea, unspecified (principal); Z12.4 Encounter for screening for malignant neoplasm of cervix
CPT/HCPCS: 36415; 85025; 86703; 86762; 86780; 86787; 86803; 86850; 87086; 87088; 87340; 88175; G0145

== ENCOUNTER → 2023-09-13 | Outpatient (CLI) | payer MEDICAID, SELFPAY ==
[2023-09-13 13:03] LABS: Absolute Lymphocyte Count 0.86 X10^3/uL (0.83-4.51); Absolute Neutrophil Count 7.9 X10^3/uL (2.0-7.7); Basophil# 0.01 X10^3/uL; Basophil% 0.1 % (0-1); Eosinophil# 0.01 X10^3/uL; Eosinophils% 0.1 % (0-5); Hemoglobin 11.2 g/dL (12.0-15.0); Lymphocyte # 0.86 X10^3/ul (0.83-4.51); Lymphocyte % 9.2 % (19-41); Mean Corp Hgb Conc 33.9 g/dL (32-36); Mean Corpuscular Hgb 32.4 pg (27.0-32.0); Mean Corpuscular Volume 95.4 fL (81-99); Mean Platelet Vol. 9.7 fl (6.2-12.0); Monocyte# 0.55 X10^3/uL; Monocyte% 5.9 % (0-10); NRBC Flagged by Analyzer 0 % (0-5); Neutrophil # 7.87 X10^3/uL (2.7-7.7); Neutrophil % 84.1 % (47-70); Platelet Count 240 K/mm3 (150-450); RBC Distribution Width CV 12.3 % (11.6-14.6); RBC Distribution Width SD 42.4 fl (35.1-43.9); Red Blood Count 3.46 M/mm3 (4.2-5.4); White Blood Count 9.4 K/mm3 (4.4-11.0)
[2023-09-13 13:20] LABS: Glucose Challenge Gest 1H 50g 123 mg/dL (70-140)
[2023-09-13 13:52] LABS: HIV - WCH Non-Reactive (Nonreactive); Syphilis Antibodies Non-reactive
== END | disposition home or self-care (01) ==
LOC: LAB 12:29
PROVIDERS: PCP Family Medicine; Referring Provider Obstetrics & Gynecology; Visit Provider Obstetrics & Gynecology
DX: O26.899 Other specified pregnancy related conditions, unspecified trimester (principal); Z67.91 Unspecified blood type, Rh negative; Z3A.00 Weeks of gestation of pregnancy not specified
CPT/HCPCS: 36415; 82950; 85025; 86703; 86780; 86850; 86900; 86901

== ENCOUNTER → 2023-10-31 | Outpatient (CLI) | payer MEDICAID, SELFPAY ==
[2023-10-31 14:55] LABS: Absolute Neutrophil Count 7.3 X10^3/uL (2.0-7.7); Basophil# 0.03 X10^3/uL; Basophil% 0.3 % (0-1); Eosinophil# 0.04 X10^3/uL; Eosinophils% 0.4 % (0-5); Hematocrit 32.7 % (37-47); Hemoglobin 10.8 g/dL (12.0-15.0); Lymphocyte % 12.9 % (19-41); Mean Corpuscular Hgb 31.3 pg (27.0-32.0); Mean Corpuscular Volume 94.8 fL (81-99); Mean Platelet Vol. 9.5 fl (6.2-12.0); Monocyte# 0.68 X10^3/uL; Monocyte% 7.3 % (0-10); NRBC Flagged by Analyzer 0 % (0-5); Neutrophil # 7.34 X10^3/uL (2.7-7.7); Neutrophil % 78.7 % (47-70); Platelet Count 252 K/mm3 (150-450); RBC Distribution Width CV 12.9 % (11.6-14.6); RBC Distribution Width SD 44.3 fl (35.1-43.9); Red Blood Count 3.45 M/mm3 (4.2-5.4); White Blood Count 9.3 K/mm3 (4.4-11.0)
[2023-10-31 15:12] LABS: ALB/GLOB Ratio 0.8 RATIO (0.9-2.4); AST(SGOT) 15 U/L (15-37); Alanine Aminotransfer ALT/SGPT 14 U/L (13-56); Albumin, Serum 3.1 g/dL (3.2-5.0); Alkaline Phosphatase 129 U/L (45-117); Anion Gap 6 (5-15); BUN 6 mg/dL (7-18); Calcium,Total 8.4 mg/dL (8.5-10.1); Chloride 107 mmol/L (98-107); Creatinine, Serum 0.55 mg/dL (0.55-1.02); EST Glomerular Filtration Rate 142 mL/min (>60); Est Glom Filt Rate - Afr Amer 172 mL/min (>60); Globulin 3.7 g/dL (2.2-4.2); Glucose 114 mg/dL (74-106); Potassium 3.7 mmol/L (3.5-5.1); Protein, Total 6.8 g/dL (6.4-8.2); Sodium Level 137 mmol/L (136-145)
[2023-10-31 15:24] LABS: Protein, Urine (Random) 12.2 mg/dL (<11.9); Protein:Creat Ratio 235 mg/g CRE (0-200)
== END | disposition home or self-care (01) ==
PROVIDERS: PCP Family Medicine; Referring Provider Nurse Practitioner Women's Health; Visit Provider Nurse Practitioner Women's Health
DX: O99.719 Diseases of the skin and subcutaneous tissue complicating pregnancy, unspecified trimester (principal); L29.9 Pruritus, unspecified; Z3A.00 Weeks of gestation of pregnancy not specified
CPT/HCPCS: 36415; 80053; 82570; 84156; 85025

== ENCOUNTER → 2023-11-08 | Outpatient (CLI) | payer MEDICAID, SELFPAY ==
[2023-11-08 18:18] LABS: Group B Strep DNA By PCR Negative (Negative); Internal Control PASS; Probe Check PASS; Specimen Processing Control PASS
== END | disposition home or self-care (01) ==
LOC: LABSPEC 15:57
PROVIDERS: PCP Family Medicine; Referring Provider Advanced Practice Midwife; Visit Provider Advanced Practice Midwife
DX: Z34.90 Encounter for supervision of normal pregnancy, unspecified, unspecified trimester (principal)
CPT/HCPCS: 87081; 87653

== ENCOUNTER 2023-12-07 13:40 | Outpatient (CLI) | payer MEDICAID, SELFPAY ==
[2023-12-07 13:48] VITALS: BP 132/80; PULSE 103; TEMP 36.6; O2SAT 99
--- OUTSIDE RECORDS SUMMARY | 2023-12-07 14:08 | XMS RPT_ITS | CCD ---
Author Name Unknown Address [address] [place] [id number] Organization [facility] Care Team Providers Care Prepleater Name Role Phone EVETTE, SIMRANJOT Unavailable Unavailable EVETTE, SIMRANJOT Unavailable Unavailable NO REFERRING DR Unavailable Unavailable EVETTE, SIMRANJOT Unavailable Unavailable EVETTE, SIMRANJOT Unavailable Unavailable Problems Problem Classification Problem Date Documented Date Episodic/Chronic Immunizations and screening for infectious disease (4 sources) Encounter for screening for infections with a predominantly sexual mode of transmission; Translations: [Encounter for screening for human immunodeficiency virus [HIV]] Onset: 07-19-2017 Episodic Unclassified (7 sources) Encounter for screening for lipoid disorders; Translations: [Encounter for screening for other metabolic disorders] Onset: 07-19-2017 Episodic Results Test Name Value Interpretation Reference Range Facil ity Encounters Encounter Date Encounter Type Care Provider Facility Start: 07-19-2017 End: 07-20-2017 Ambulatory SIMRANJOT EVETTE Facility:[facility] Payers Date Payer Category Payer Policy ID Private Health Insurance [id number] Summary Purpose Family History No Family History Records FoundNo Family History Records FoundNo Family History Records Found Advance Directives No Advanced Directives Records FoundNo Advanced Directives Records FoundNo Advanced Directives Records Found Additional Source Comments INFORMATION SOURCE (unrecogn ized section and content) DATE CREATED AUTHOR AUTHOR'S ORGANIZ ATION 05/19/2018 [facility] DATE CREATED AUTHOR AUTHOR'S ORGANIZ ATION 05/24/2018 [facility] FOR RECORDS PERTAINING TO PATIENTS WHO ARE OR HAVE BEEN ENROLLED IN A CHEMICAL DEPENDENCY/SUBSTANCEABUSE PROGRAM, SOME INFORMATION MAY BE OMITTED. This clinical summary was aggregated from multiple sources. Caution should be exercised in using it in the provision of clinical care. This summary normalizes information from multiple sources, and as a consequence, information in this document may materially change the coding, format and clinical context of patient data. In addition, data may be omitted in some cases. CLINICAL DECISIONS SHOULD BE BASED ON THE PRIMARY CLINICAL RECORDS. [facility] [employer] [facility]. provides no warranty or guarantee of the accuracy or completeness of information in this document.
[2023-12-07 14:31] LABS: ROM Internal Control Test YES-OK TO RESULT pt. (Internal QC)
[2023-12-07 14:32] LABS: ROM Patient Test Negative (Negative); Record Kit Lot#, ROM+ K1374
[2023-12-07 14:43] VITALS: BP 119/85; PULSE 93
[2023-12-07 16:01] VITALS: BMI 28.5
--- NOTE | 2023-12-07 17:00 | OB.TRI.HP_ITS ---
HPI - General HPI Narrative LIZ VALDES, is a 27 F who presents with the complaint of a small gush of fluid earlier today. She denies further leaking, vaginal bleeding, or dec fm. she is scheduled for an IOL tomorrow. Maternal Data Information FLAVIO Calculator Estimated Delivery Date Method Current WG Current Estimate 12/03/23 LMP (Certain) 40w 4d PFSH PFSH Medical History Anemia Home Medications prenat.vits,evangelina,ift-vilc-jkgrz ( Vitamin tablet) 1 ea PO DAILY 07/14/18 [History Last Taken 07/13/18 21:00] Allergy/AdvReac Type Severity Reaction Status Date / Time latex Allergy Rash Verified 12/06/23 13:30 Family History Grandmother Breast cancer Social History adopted: No household members: spouse and children number of children: 1 current occupational status: employed current occupation: [employer] current occupational exposures/hazards: No pets and animals: No history of recent travel: No sexually active: Yes Smoking Status: Former smoker alcohol intake: never substance use type: former substance user and marijuana caffeine: Yes what type of physical activity do you participate in: yoga frequency: 1-2 times per week seatbelt use: always do you feel safe at home: Yes additional social history: Mary Kay vaughan History 2 Elective abortions Hx Para 1 Spontaneous abortions Hx # Term Pregnancies Ectopic pregnancies Hx # Pregnancies Multiple births # of living children Past Pregnancies Del. Date Name GA/Weeks Outcome Route Bth Weight Infant Gen Labor Lgth Anes thesia Del Locatn Provider FOB 07/16/18 Kevin 41 live - full term 6lbs 15oz Female epidural [facility] Dr. Joao Vaughan Delivery Date: 07/16/18 Last Updated by: Tahira Barclay No issues during or delivery Visit Details Expected Delivery Route/Plan Labor Preferences- CB/BF classes:did with last , and wic program labor support person: Gregg bryant) labor intervention preferences: no preferences pain management options preferred:epidural cut cord/dad catch: Gregg to cut cord : may want to try, did not with last baby PP control planned: discussed discussed possible routes of delivery and associated risks: [] special requests: [] Plans Covid status: unvaccinated Flu vaccine: unvaccinated Tdap vaccine: declines Rhogam: due at 28 weeks. 09/13/23 LARC form signed: yes Problem list reviewed and updated with the most current plan of care details and appropriate orders placed. Relevant counseling for the gestational age provided. Continue routine care and follow up unless otherwise noted in visit notes/problem list details OB Flowsheet Initial Weight: Not Recorded Date -?-?-?-?-?-?-?-?-?-?-?-?- EGA Weight BP Urine Prot -?-?-?-?-?-?-?-?-?-?-?-?- Glucose FHR FuHt Pres Dilation -?-?-?-?-?-?-?-?-?-?-?-?- Effaced St Visit Note 08/16/23 -?-?-?-?-?-?-?-?-?-?-?-?- 24w 3d 132 lb 6 oz 117/63 Nega tive -?-?-?-?-?-?-?-?-?-?-?-?- Negative 172 -?-?-?-?-?-?-?-?-?-?-?-?- JV- transfer fro m [place]. h/o normal . has a 5 year old at home. smoker. stays home with daughter. rh neg. all labs and us up to date. 09/13/23 -?-?-?-?-?-?-?-?-?-?-?-?- 28w 3d 137 lb 6 oz 120/64 Nega tive -?-?-?-?-?-?-?-?-?-?-?-?- Negative 152 28 -?-?-?-?-?-?-?-?-?-?-?-?- MH-No VB, LOF. G ood FM. Larc, rhogam. 28 wk labs pending 09/28/23 -?-?-?-?-?-?-?-?-?-?-?-?- 30w 4d 139 lb 6 oz 122/71 Nega tive -?-?-?-?-?-?-?-?-?-?-?-?- Negative 145 29 -?-?-?-?-?-?-?-?-?-?-?-?- JV- passed gluco la, no concerns. no lof, vaginal bleeding, or dec fm. declines flu shot. 10/13/23 -?-?-?-?-?-?-?-?-?-?-?-?- 32w 5d 144 lb 106/70 Negative -?-?-?-?-?-?-?-?-?-?-?-?- Negative 145 33 Cephalic -?-?-?-?-?-?-?-?-?-?-?-?- SM- no vb lof go od fm n oreular ctx 10/25/23 -?-?-?-?-?-?-?-?-?-?-?-?- 34w 3d 144 lb 6 oz 118/75 Nega tive -?-?-?-?-?-?-?-?-?-?-?-?- Negative 160 34 Cephalic -?-?-?-?-?-?-?-?-?-?-?-?- KW- no vb/lof/ct x. good fm. no concerns. Discussed GBS swab 10/31/23 -?-?-?-?-?-?-?-?-?-?-?-?- 35w 2d 147 lb 6 oz 130/70 Trac e -?-?-?-?-?-?-?-?-?-?-?-?- Negative 146 35 -?-?-?-?-?-?-?-?-?-?-?-?- MH-itching X 4 d ays, started hands, feet and today all over. No rash. Labs ordered. Good FM. No VB, LOF. 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 good fm. declines SVE. gbs today 11/18/23 -?-?-?-?-?-?-?-?-?-?-?-?- 37w 6d 156 lb 136/80 Negative -?-?-?-?-?-?-?-?-?-?-?-?- Negative 150 38 Cephalic 2 -?-?-?-?-?-?-?-?-?-?-?-?- 40 -2 kw- no vb/ lof/ctx. good fm. Claritin helping with itch-still awaiting bile acids 11/25/23 -?-?-?--?-?-?-?-?-?-?-?-?- 38w 6d 156 lb 4 oz 111/77 Nega tive -?-?-?-?-?-?-?-?-?-?-?-?- Negative 145 38 Cephalic 1 -?-?-?-?-?-?-?-?-?-?-?-?- 20 -3 SM- no vb lof good fm no regular ctx itching improved, has rash on abdomen now. bile acids reveiwed. 12/01/23 -?-?-?-?-?-?-?-?-?-?-?-?- 39w 5d 153 lb 8 oz 128/95 Nega tive -?-?-?-?-?-?-?-?-?-?-?-?- Negative 140 38 Cephalic 2 -?-?-?-?-?-?-?-?-?-?-?-?- 50 -2 KW-no vb/l of/ctx. good fm. feels early labor sx. declines membrane sweep today and discussed IOL at 41 weeks. 12/06/23 -?-?-?-?-?-?-?-?-?-?-?-?- 40w 3d 155 lb 126/82 Negative -?-?-?-?-?-?-?-?-?-?-?-?- Negative 140 39 Cephalic 2 -?-?-?-?-?-?-?-?-?-?-?-?- 70 -1 SM- no vb lof good fm no regular ctx ROS Constitutional Constitutional: Reports systems reviewed and no addt'l complaints, except as documented Gastrointestinal Gastrointestinal: Denies bloating, constipation, cramping, diarrhea, nausea or vomiting Genitourinary Genitourinary: Reports other Details: Denies vaginal odor, vaginal bleeding, or vaginal discharge ; Denies difficulty urinating or flank pain NST FHR Rate Baby A Baseline: 130 Variability:: Moderate Accelerations:: 15 x 15 Decelerations:: None NST Reactive:: Yes FHR Category:: Category I Assessment & Plan (1) PUPPP (pruritic urticarial papules and plaques of ): COMMENT: reviewed, supportive care (2) Anemia: COMMENT: add Fe at opposite time as (3) High risk due to smoking: QUALIFIERS: Trimester: third trimester Qualified Code(s): O99.333 - Smoking (tobacco) complicating , third trimester COMMENT: 3 cig per day. Down from 1.5 ppd. Counseled. (4) Rh negative state in antepartum period: COMMENT: Rhogam given 09/13/23 (5) Supervision of normal : QUALIFIERS: Normal : other normal Trimester: third trimester Qualified Code(s): Z34.83 - Encounter for supervision of other normal , third trimester COMMENT: [id number] Girl JOSE A Muñiz: Gregg (6) : QUALIFIERS: Weeks of gestation: 40 weeks Qualified Code(s): Z3A.40 - 40 weeks gestation of COMMENT: GBS neg, genetic, carrier, and ntd screening declined. Anatomy US NL. Normal bile acids PLAN: Plan false SROM- neg rom + and no cervical change after 2 hours. pt wishes to go home and return tomorrow for IOL. Charges/Coding Multi Select Codes Urinary/Genital Urinary/Genital CPT Codes: 07343-62 non-stress test Interp
== END 2023-12-07 15:30 | disposition home or self-care (01) ==
LOC: WPOUT 13:43 → WP 13:45
PROVIDERS: Advanced Practice Midwife; PCP Family Medicine; Referring Provider Obstetrics & Gynecology; Visit Provider Obstetrics & Gynecology
DX: O47.1 False labor at or after 37 completed weeks of gestation (principal); O26.86 Pruritic urticarial papules and plaques of pregnancy (PUPPP); O99.013 Anemia complicating pregnancy, third trimester; O26.893 Other specified pregnancy related conditions, third trimester; O99.333 Smoking (tobacco) complicating pregnancy, third trimester; F17.210 Nicotine dependence, cigarettes, uncomplicated; Z3A.40 40 weeks gestation of pregnancy
CPT/HCPCS: 59025; 59050 ×2; 84112; G0378 ×2; 99221

== ENCOUNTER 2023-12-08 06:55 | Inpatient (IN) | payer MEDICAID, SELFPAY ==
[2023-12-08] VITALS (30 sets, daily range): BP systolic 110–194; BP diastolic 60–83; PULSE 72–119; RESP 16; TEMP 36.4–37; O2SAT 97–100; BMI 28.8
--- OUTSIDE RECORDS SUMMARY | 2023-12-08 07:26 | XMS RPT_ITS | CCD ---
Author Name Unknown Address [address] [place] [id number] Organization [facility] Care Team Providers Care Plaster Applicator Name Role Phone EVETTE, SIMRANJOT Unavailable Unavailable [...] Start: 07-19-2017 End: 07-20-2017 Ambulatory SIMRANJOT EVETTE Facility:[facility] Payers Date Payer Category Payer Policy ID Private Health Insurance [id number] Summary Purpose Family History No Family History Records FoundNo Family History Records FoundNo Family History Records Found Advance Directives No Advanced Directives Records FoundNo Advanced Directives Records FoundNo Advanced Directives Records Found Additional Source Comments INFORMATION SOURCE (unrecogn ized section and content) DATE CREATED AUTHOR AUTHOR'S ORGANIZ ATION 05/19/2018 [facility] DATE CREATED AUTHOR AUTHOR'S ORGANIZ ATION 05/24/2018 [facility] FOR RECORDS PERTAINING TO PATIENTS WHO ARE [...] BE BASED ON THE PRIMARY CLINICAL RECORDS. [facility] [employer] [facility]. provides no warranty or guarantee of the accuracy or completeness of information in this document.
--- OUTSIDE RECORDS SUMMARY | 2023-12-08 07:26 | XMS RPT_ITS | CCD ---
Author Name Unknown Address [address] [place] [id number] Organization [facility] Care Team Providers Care Curing Supervisor Name Role Phone EVETTE, SIMRANJOT Unavailable Unavailable [...] Start: 07-19-2017 End: 07-20-2017 Ambulatory SIMRANJOT EVETTE Facility:[facility] Payers Date Payer Category Payer Policy ID Private Health Insurance [id number] Summary Purpose Family History No Family History Records FoundNo Family History Records FoundNo Family History Records Found Advance Directives No Advanced Directives Records FoundNo Advanced Directives Records FoundNo Advanced Directives Records Found Additional Source Comments INFORMATION SOURCE (unrecogn ized section and content) DATE CREATED AUTHOR AUTHOR'S ORGANIZ ATION 05/19/2018 [facility] DATE CREATED AUTHOR AUTHOR'S ORGANIZ ATION 05/24/2018 [facility] FOR RECORDS PERTAINING TO PATIENTS WHO [...] BE BASED ON THE PRIMARY CLINICAL RECORDS. [facility] [employer] [facility]. provides no warranty or guarantee of the accuracy or completeness of information in this document.
[2023-12-08] MEDS: Lactated Ringers 1,000 ML 50 ML IV (07:30)
[2023-12-08 07:50] LABS: Absolute Lymphocyte Count 1.37 X10^3/uL (0.83-4.51); Basophil# 0.02 X10^3/uL; Basophil% 0.3 % (0-1); Eosinophil# 0.04 X10^3/uL; Eosinophils% 0.6 % (0-5); Hematocrit 32.6 % (37-47); Hemoglobin 11.2 g/dL (12.0-15.0); Lymphocyte # 1.37 X10^3/ul (0.83-4.51); Lymphocyte % 19.2 % (19-41); Mean Corp Hgb Conc 34.4 g/dL (32-36); Mean Corpuscular Hgb 31.3 pg (27.0-32.0); Mean Corpuscular Volume 91.1 fL (81-99); Mean Platelet Vol. 10.5 fl (6.2-12.0); Monocyte# 0.65 X10^3/uL; Monocyte% 9.1 % (0-10); NRBC Flagged by Analyzer 0 % (0-5); Neutrophil # 5.02 X10^3/uL (2.7-7.7); Neutrophil % 70.5 % (47-70); Platelet Count 234 K/mm3 (150-450); RBC Distribution Width CV 13.7 % (11.6-14.6); RBC Distribution Width SD 45.4 fl (35.1-43.9); Red Blood Count 3.58 M/mm3 (4.2-5.4); White Blood Count 7.1 K/mm3 (4.4-11.0)
[2023-12-08] MEDS: Oxytocin 15 Units/NS 250ml 15 UNITS/250 ML IV.SOLN 2 UNITS IV (08:21)
[2023-12-08] MEDS: 0.9% Normal Saline Single 100 ML IV.SOLN. INTRA-UTER (08:40)
[2023-12-08] MEDS: LACTATED RINGERS 500 ML 999 ML IV (09:15)
[2023-12-08] MEDS: fentaNYL-bupivacaine (epidural) 100 ML BAG EPIDURAL ×2 (09:45→14:14)
[2023-12-08 11:07] LABS: Syphilis Antibodies Non-reactive
[2023-12-08] MEDS: Lactated Ringers 1,000 ML 200 ML IV (14:39)
--- NOTE | 2023-12-08 16:54 | HP.PCM.OB_ITS ---
HPI - General General Date of Admission: 12/08/23 HPI Narrative LIZ VALDES, is a 27 F who presents for induction of labor secondary to pupps and postdates. no vb lof good fm no regular ctx 2-3 cm Maternal Data Information FLAVIO Calculator Estimated Delivery Date Method Current WG Current Estimate 12/03/23 LMP (Certain) 40w 5d PFSH PFSH Medical History Anemia Home Medications prenat.vits,evangelina,[id number] ( Vitamin tablet) 1 ea PO DAILY 07/14/18 [History Last Taken 07/13/18 21:00] Allergy/AdvReac Type Severity Reaction Status Date / Time latex Allergy Rash Verified 12/06/23 13:30 Family History Grandmother Breast cancer Social History adopted: No household members: spouse and children number of children: 1 current occupational status: employed current occupation: [employer] current occupational exposures/hazards: No pets and animals: No history of recent travel: No sexually active: Yes Smoking Status: Current every day smoker alcohol intake: never substance use type: former substance user and marijuana caffeine: Yes what type of physical activity do you participate in: yoga frequency: 1-2 times per week seatbelt use: always do you feel safe at home: Yes additional social history: Mary Kay vaughan History 2 Elective abortions Hx Para 1 Spontaneous abortions Hx # Term Pregnancies Ectopic pregnancies Hx # Pregnancies Multiple births # of living children Past Pregnancies Del. Date Name GA/Weeks Outcome Route Bth Weight Gen Labor Lgth Anesthesia Del Locatn Provider FOB 07/16/18 Rajradha 41 live - full term 6lbs 15oz Female epidural [facility] Dr. Joao Vaughan Delivery Date: 07/16/18 Last Updated by: Tahira Barclay No issues during or delivery Visit Details Expected Delivery Route/Plan Labor Preferences- CB/BF classes:did with last , and wic program labor support person: Gregg bryant) labor intervention preferences: no preferences pain management options preferred:epidural cut cord/dad catch: Gregg to cut cord : may want to try, did not with last baby PP control planned: discussed discussed possible routes of delivery and associated risks: [] special requests: [] Plans Covid status: unvaccinated Flu vaccine: unvaccinated Tdap vaccine: declines Rhogam: due at 28 weeks. 09/13/23 LARC form signed: yes Problem list reviewed and updated with the most current plan of care details and appropriate orders placed. Relevant counseling for the gestational age provided. Continue routine care and follow up unless otherwise noted in visit notes/problem list details OB Flowsheet Initial Weight: Not Recorded Date -?-?-?-?-?-?-?-?-?-?-?-?- EGA Weight BP Urine Prot -?-?-?-?-?-?-?-?-?-?-?-?- Glucose FHR FuHt Pres Dilation -?-?-?-?-?-?-?-?-?-?-?-?- Effaced St Visit Note 08/16/23 -?-?-?-?-?-?-?-?-?-?-?-?- 24w 3d 132 lb 6 oz 117/63 Nega tive -?-?-?-?-?-?-?-?-?-?-?-?- Negative 172 -?-?-?-?-?-?-?-?-?-?-?-?- JV- transfer fro m [place]. h/o normal . has a 5 year old at home. smoker. stays home with daughter. rh neg. all labs and us up to date. 09/13/23 -?-?-?-?-?-?-?-?-?-?-?-?- 28w 3d 137 lb 6 oz 120/64 Nega tive -?-?-?-?-?-?-?-?-?-?-?-?- Negative 152 28 -?-?-?-?-?-?-?-?-?-?-?-?- MH-No VB, LOMirza. G ood FM. Larc, rhogam. 28 wk labs pending 09/28/23 -?-?-?-?-?-?-?-?-?-?-?-?- 30w 4d 139 lb 6 oz 122/71 Nega tive -?-?-?-?-?-?-?-?-?-?-?-?- Negative 145 29 -?-?-?-?-?-?-?-?-?-?-?-?- JV- passed gluco la, no concerns. no lof, vaginal bleeding, or dec fm. declines flu shot. 10/13/23 -?-?-?-?-?-?-?-?-?-?-?-?- 32w 5d 144 lb 106/70 Negative -?-?-?-?-?-?-?-?-?-?-?-?- Negative 145 33 Cephalic -?-?-?-?-?-?-?-?-?-?-?-?- SM- no vb lof go od fm n oreular ctx 10/25/23 -?-?-?-?-?-?-?-?-?-?-?-?- 34w 3d 144 lb 6 oz 118/75 Nega tive -?-?-?-?-?-?-?-?-?-?-?-?- Negative 160 34 Cephalic -?-?-?-?-?-?-?-?-?-?-?-?- KW- no vb/lof/ct x. good fm. no concerns. Discussed GBS swab 10/31/23 -?-?-?-?-?-?-?-?-?-?-?-?- 35w 2d 147 lb 6 oz 130/70 Trac e -?-?-?-?-?-?-?-?-?-?-?-?- Negative 146 35 -?-?-?-?-?-?-?-?-?-?-?-?- MH-itching X 4 d ays, started hands, feet and today all over. No rash. Labs ordered. Good FM. No VB, LOF. 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 good fm. declines SVE. gbs today 11/18/23 -?-?-?-?-?-?-?-?-?-?-?-?- 37w 6d 156 lb 136/80 Negative -?-?-?-?-?-?-?-?-?-?-?-?- Negative 150 38 Cephalic 2 -?-?-?-?-?-?-?-?-?-?-?-?- 40 -2 kw- no vb/ lof/ctx. good fm. Claritin helping with itch-still awaiting bile acids 11/25/23 -?-?-?-?-?-?-?-?-?-?-?-?- 38w 6d 156 lb 4 oz 111/77 Nega tive -?-?-?-?-?-?-?-?-?-?-?-?- Negative 145 38 Cephalic 1 -?-?--?-?-?-?-?-?-?-?-?-?- 20 -3 SM- no vb lof good fm no regular ctx itching improved, has rash on abdomen now. bile acids reveiwed. 12/01/23 -?-?-?-?-?-?-?-?-?-?-?-?- 39w 5d 153 lb 8 oz 128/95 Nega tive -?-?-?-?-?-?-?-?-?-?-?-?- Negative 140 38 Cephalic 2 -?-?-?-?-?-?-?-?-?-?-?-?- 50 -2 KW-no vb/l of/ctx. good fm. feels early labor sx. declines membrane sweep today and discussed IOL at 41 weeks. 12/06/23 -?-?-?-?-?-?-?-?-?-?-?-?- 40w 3d 155 lb 126/82 Negative -?-?-?-?-?-?-?-?-?-?-?-?- Negative 140 39 Cephalic 2 -?-?-?-?-?-?-?-?-?-?-?-?- 70 -1 SM- no vb lof good fm no regular ctx NST FHR Rate Baby A Baseline: 130 Variability:: Moderate Accelerations:: 15 x 15 Decelerations:: None NST Reactive:: Yes FHR Category:: Category I Uterine Activity:: irregular ROS Constitutional Constitutional: Reports systems reviewed and no addt'l complaints, except as documented Eyes Eyes: Denies change in vision ENT HEENT: Reports systems reviewed and no addt'l complaints, except as documented; Denies headache(s) Cardiovascular Cardiovascular: Reports systems reviewed and no addt'l complaints, except as documented; Denies chest pain or dyspnea Respiratory/Chest Respiratory/Chest: Reports systems reviewed and no addt'l complaints, except as documented Gastrointestinal Gastrointestinal: Reports systems reviewed and no addt'l complaints, except as documented; Denies abdominal pain Genitourinary Genitourinary: Reports systems reviewed and no addt'l complaints, except as documented, contractions Details: present (irregular) and movement Details: present; Denies dysuria or genital lesions Musculoskeletal Musculoskeletal: Reports systems reviewed and no addt'l complaints, except as documented Neurologic Neurologic: Reports systems reviewed and no addt'l complaints, except as documented Endocrine Endocrinology: Reports systems reviewed and no addt'l complaints, except as documented Vital Signs Vital Signs Vital Signs: 12/08/23 08:01 12/08/23 08:01 12/08/23 08:01 Temperature Temperature Source Temporal Pulse Rate 108 H Blood Pressure 136/80 H BP Systolic 136 BP Diastolic 80 Pulse Ox 12/08/23 08:01 12/08/23 08:07 12/08/23 08:07 Temperature 98.2 F Temperature Source Pulse Rate 105 H Blood Pressure BP Systolic BP Diastolic Pulse Ox 97 12/08/23 09:33 12/08/23 09:34 12/08/23 09:34 Temperature Temperature Source Pulse Rate 80 Blood Pressure 142/81 H BP Systolic 142 BP Diastolic 81 Pulse Ox 100 12/08/23 09:38 12/08/23 09:38 12/08/23 09:39 Temperature Temperature Source Pulse Rate 95 85 Blood Pressure 138/83 H BP Systolic 138 BP Diastolic 83 Pulse Ox 01/11/24 09:39 12/08/23 09:44 12/08/23 09:44 Temperature Temperature Source Pulse Rate 79 Blood Pressure 132/82 H BP Systolic 132 BP Diastolic 82 Pulse Ox 100 12/08/23 09:44 12/08/23 09:34 12/08/23 09:49 Temperature Temperature Source Pulse Rate Blood Pressure 128/77 H BP Systolic 128 BP Diastolic 77 Pulse Ox 99 100 12/08/23 09:49 12/08/23 09:49 12/08/23 09:53 Temperature Temperature Source Pulse Rate 86 Blood Pressure 132/77 H BP Systolic 132 BP Diastolic 77 Pulse Ox 98 12/08/23 09:53 12/08/23 10:21 12/08/23 10:21 Temperature Temperature Source Pulse Rate 102 H 78 Blood Pressure 130/82 H BP Systolic 130 BP Diastolic 82 Pulse Ox 12/08/23 10:26 12/08/23 10:26 12/08/23 10:54 Temperature Temperature Source Pulse Rate 72 Blood Pressure 118/75 122/81 H BP Systolic 118 122 BP Diastolic 75 81 Pulse Ox 12/08/23 10:54 12/08/23 11:25 12/08/23 11:25 Temperature Temperature Source Pulse Rate 77 75 Blood Pressure 118/69 BP Systolic 118 BP Diastolic 69 Pulse Ox 12/08/23 11:27 12/08/23 11:27 12/08/23 12:14 Temperature 97.6 F L Temperature Source Temporal Pulse Rate Blood Pressure 124/73 H BP Systolic 124 BP Diastolic 73 Pulse Ox 12/08/23 12:14 12/08/23 12:14 12/08/23 12:14 Temperature Temperature Source Pulse Rate 77 78 Blood Pressure BP Systolic BP Diastolic Pulse Ox 100 12/08/23 13:17 12/08/23 13:17 12/08/23 13:17 Temperature Temperature Source Temporal Pulse Rate 92 Blood Pressure 126/67 H BP Systolic 126 BP Diastolic 67 Pulse Ox 12/08/23 13:17 12/08/23 13:17 12/08/23 13:19 Temperature 98.6 F Temperature Source Pulse Rate 84 Blood Pressure BP Systolic BP Diastolic Pulse Ox 100 12/08/23 13:19 12/08/23 13:24 12/08/23 13:24 Temperature Temperature Source Pulse Rate 86 Blood Pressure BP Systolic BP Diastolic Pulse Ox 99 99 12/08/23 14:51 12/08/23 14:51 12/08/23 16:38 Temperature Temperature Source Pulse Rate 83 Blood Pressure 115/69 194/73 H BP Systolic 115 194 BP Diastolic 69 73 Pulse Ox 12/08/23 16:38 12/08/23 16:41 12/08/23 16:41 Temperature Temperature Source Pulse Rate 96 100 Blood Pressure 123/73 H BP Systolic 123 BP Diastolic 73 Pulse Ox 12/08/23 16:51 12/08/23 16:51 Temperature Temperature Source Pulse Rate 87 Blood Pressure 125/69 H BP Systolic 125 BP Diastolic 69 Pulse Ox Weight Weight: 157 lb 4 oz Body Mass Index (BMI) 28.8 Physical Exam Const alert, oriented x3, no apparent distress and healthy appearing HEENT normocephalic and moist oral mucous membranes Head and Scalp: atraumatic Neck full ROM, no lymphadenopathy, supple and thyroid normal General: trachea midline Lymph Lymphatic: no lymphadenopathy noted Chest inspection of chest normal Resp normal respiratory effort Cardio regular rate GI normal to inspection, nondistended, normoactive bowel sounds, soft to palpation and non-tender Inspection: gravid external exam normal Manual OB Exam: estimated gestational size appropriate, presentation cephalic, dilated, effaced and station Extremity normal to inspection General Extremity: Negative for edema Skin no rashes or lesions noted Neuro no focal motor deficits and deep tendon reflexes 2+ bilaterally Motor Exam: strength 5/5 throughout and clonus absent Psych mental status grossly normal Labs Labs Labs: Blood Type O NEGATIVE Antibody Screen NEGATIVE Hct 32.6 % (37-47) L Hgb 11.2 g/dL (12.0-15.0) L Syphilis Total Ab Non-reactive VZV IgG Antibody 441 index (Immune >165) Rubella IgG Antibody Reactive (Nonreactive) Hep Bs Antigen Non-Reactive (Nonreactive) Hepatitis C Antibody Non-Reactive (Nonreactive) HIV 1&2 Antibody Non-Reactive (Nonreactive) Glucose 1 Hr 50 gm 123 mg/dL (70-140) Group B Strep DNA Negative (Negative) Rhogam given: Yes Miscellaneous Test Assessment & Plan (1) : QUALIFIERS: Weeks of gestation: 40 weeks Qualified Code(s): Z3A.40 - 40 weeks gestation of COMMENT: GBS neg, genetic, carrier, and ntd screening declined. Anatomy US NL. Normal bile acids (2) Supervision of normal : QUALIFIERS: Normal : other normal Trimester: third trimester Qualified Code(s): Z34.83 - Encounter for supervision of other normal , third trimester COMMENT: [id number] Girl JOSE A Brown Mary Kay: Gregg (3) Rh negative state in antepartum period: COMMENT: Rhogam given 09/13/23 (4) High risk due to smoking: QUALIFIERS: Trimester: third trimester Qualified Code(s): O99.333 - Smoking (tobacco) complicating , third trimester COMMENT: 3 cig per day. Down from 1.5 ppd. Counseled. (5) Anemia: COMMENT: add Fe at opposite time as (6) PUPPP (pruritic urticarial papules and plaques of ): COMMENT: reviewed, supportive care (7) Encounter for induction of labor: PLAN: Plan Patient presents IOL, plan management for with fb placed pitocin/AROM. Pain management: plans epidural. GBS negative. Management of any complications: none I have reviewed the [facility] and made any clinically relevant updates.
--- NOTE | 2023-12-08 16:55 | OP.PCM_ITS ---
Assessment & Plan (1) PUPPP (pruritic urticarial papules and plaques of ): COMMENT: reviewed, supportive care (2) Encounter for induction of labor: (3) Anemia: COMMENT: add Fe at opposite time as (4) High risk due to smoking: QUALIFIERS: Trimester: third trimester Qualified Code(s): O99.333 - Smoking (tobacco) complicating , third trimester COMMENT: 3 cig per day. Down from 1.5 ppd. Counseled. (5) Rh negative state in antepartum period: COMMENT: Rhogam given 09/13/23 (6) Supervision of normal : QUALIFIERS: Normal : other normal Trimester: third trimester Qualified Code(s): Z34.83 - Encounter for supervision of other normal , third trimester COMMENT: [id number] Girl PC Kevin Mary Kay: Gregg (7) : QUALIFIERS: Weeks of gestation: 40 weeks Qualified Code(s): Z3A.40 - 40 weeks gestation of COMMENT: GBS neg, genetic, carrier, and ntd screening declined. Anatomy US NL. Normal bile acids (8) Vaginal delivery: COMMENT: SM IOL postdates girl Reta Maternal Data Information FLAVIO Calculator Estimated Delivery Date Method Current WG Current Estimate 12/03/23 LMP (Certain) 40w 5d Vaginal Delivery Operative Information Pre-Operative Diagnosis: see a/p diagnoses Post-Operative Diagnosis: same Surgery / Procedure Performed: Spontaneous Vaginal Delivery Type of Anesthesia: Epidural Special Medications: none Estimated Blood Loss: 200 Fluids Replaced: crystalloid Findings Description of Procedure: Patient began pushing and delivered the head in the PRINCE presentation. The head was delivered atraumatically . The anterior and posterior shoulders delivered without complication followed by the rest of the and the infant was placed on the maternal abdomen. Delayed cord clamping was employed for approximately 60 seconds. Cord was clamped and cut and gentle traction was applied to the cord and the placenta delivered spontaneously immediately following it was noted to be intact with three-vessel cord. The perineum and vagina were inspected and noted to have no laceration. EBL was 200 cc. Patient and tolerated delivery well. Amniotic Fluid Description: Clear Placental Delivery Description: Spontaneous Placenta Disposition: [facility] Cord Vessel Description: 3 Vessels Cord Entanglement: None Delayed Cord Clamping: Yes Post Vaginal Delivery Medications Given After Delivery: - (Pitocin) Episiotomy Description: None Complication Complications: None Procedures Urinary/Genital [id number]: [id number] Vaginal Delivery+PP Care([facility])
--- NOTE | 2023-12-08 16:56 | DCINST_ITS ---
Discharge Instructions Diet Discharge Diet: No restrictions Activity Discharge Activity: Return to Normal Activity, May Not Drive (while taking narcotic pain medications.) and May Shower May resume sexual activity in: 4-6 weeks Dressing / Incision Call your doctor if your incision/area has: Continuous Slow Oozing, Sudden Increased Bleeding, Increased Pain/ Swelling, Increased Redness and Foul Smelling Discharge Follow Up Care Please Follow Up With: Jesica Rivera MD When: Call [phone] to make an appointment with your doctor in 6 weeks. If you had elevated blood pressure or 4th degree laceration, you will need to be seen in 2 weeks. Test Results: Test results from this visit will be discussed in further detail at your follow- up appointment, if applicable. Discharge Plan Admission Admit Date/Time: 12/08/23 06:55 Attending Provider: Jesica Rivera Primary Care Provider: Dunia Hawthorne Discharge Orders/Prescriptions Prescriptions: No Action prenat.vits,evangelina,[id number] [ Vitamin] 1 EACH tablet 1 ea PO DAILY Referrals / Follow Up: Dunia Hawthorne DO [Primary Care Provider] - Disposition Disposition (needs filled in before D/C Order can be placed): Home, Self Care
[2023-12-08] MEDS: Oxytocin 15 Units/NS 250ml 15 UNITS/250 ML IV.SOLN 83 UNITS IV (17:00)
[2023-12-08] MEDS: Acetaminophen 500 MG Tablet 1000 MG PO (18:38)
[2023-12-08] MEDS: Rho(D) Immune Globulin 300 MCG (1500 Unit) Syringe IV (22:59)
--- NOTE | 2023-12-08 23:25 | NURSING ---
pt calls out to nurse, shows this nurse a large clot, no other bleeding noted, fundus firm u/1.
[2023-12-09 04:45] VITALS: BP 124/78; PULSE 116; RESP 16; TEMP 36.7; O2SAT 99
[2023-12-09] MEDS: Acetaminophen 500 MG Tablet 1000 MG PO (04:46)
--- NOTE | 2023-12-09 08:00 | PCM.PN.OB ---
Subjective Subjective Patient doing well without complaints. Tolerating PO. Ambulating and voiding without difficulty. Feeding well. Denies chest pain, shortness of breath, calf pain/swelling, fevers, chills, lightheadedness. Objective Data Objective Data Vital Signs: Vital Signs Temp Pulse Resp BP Pulse Ox O2 Del Method 98.1 F 116 H 16 124/78 H 99 Room Air 12/09/23 04:45 12/09/23 04:45 12/09/23 04:45 12/09/23 04:45 12/09/23 04:45 12/09/23 04:45 Oxygen Delivery Method Room Air Weight: 157 lb 4 oz Body Mass Index (BMI) 28.8 Intake & Output: Intake and Output for Last 24 Hours 12/07/23 12/08/23 12/09/23 23:59 23:59 23:59 Intake Total 2684.00 / 2684.00 Output Total 800 / 800 Balance 1884.00 / 1884.00 Lab / Micro Data 12/08/23 07:30 Labs: Laboratory Results - last 24 hr 12/08/23 07:30: Syphilis Total Ab Non-reactive, Blood Type O NEGATIVE, Antibody Screen NEGATIVE 12/08/23 21:00: Screen NEGATIVE, Baby's Blood Type O POSITIVE, Baby's MAEGAN NEGATIVE ROS Constitutional Constitutional: Denies chills, fatigue, fever(s), poor appetite or weakness Eyes Eyes: Denies blurry vision, change in vision, seeing flashes or spots in vision ENT HEENT: Denies dizziness, headache(s), loss taste/smell or sore throat Cardiovascular Cardiovascular: Denies chest pain, dizziness, dyspnea, irregular heart rhythm, palpitations or rapid heart rate Respiratory/Chest Respiratory/Chest: Denies chest tightness, cough, dyspnea or breast pain Gastrointestinal Gastrointestinal: Denies abdominal pain, constipation or vomiting Genitourinary Genitourinary: Denies dysuria or flank pain Musculoskeletal Musculoskeletal: Denies difficulty walking, joint pain, limited range of motion or numbness Neurologic Neurologic: Denies abnormal movements, abnormal speech, dizziness, numbness, seizure-like activity or syncope Psychiatric Psychiatric: Denies anxiety, behavioral changes, change in appetite, confusion, depression or suicidal thoughts Physical Exam Const alert, oriented x3 and no apparent distress General Appearance: cooperative and comfortable Resp normal respiratory effort Cardio regular rate GI normal to inspection, nondistended, normoactive bowel sounds GI Narrative: uterus is firm below umbilicus Palpation: soft Back/Spine no CVA tenderness and thoraco-lumbar ROM normal Extremity normal to inspection, no clubbing, cyanosis or edema, no calf tenderness and no pedal edema Psych mental status grossly normal, thought process normal, cooperative, affect normal, speech normal, activity/motor behavior normal, denies homicidal ideation and denies suicidal ideation Assessment & Plan (1) Vaginal delivery: COMMENT: SM IOL postdates girl Reta (2) Rh negative state in antepartum period: COMMENT: Rhogam given 09/13/23 PLAN: Plan s/p PPD # 1 1. routine post delivery care 2. breast feeding- support given 3. rh negatice - rhogam workup complete 4. rubella immune 5. dc to home today
[2023-12-09 09:18] VITALS: BP 110/67; PULSE 99; RESP 16; TEMP 36.3; O2SAT 96
[2023-12-09] MEDS: Naproxen 500 MG Tablet PO (09:47)
[2023-12-09 12:22] VITALS: BP 124/74; PULSE 90; RESP 16; TEMP 36.4; O2SAT 96
[2023-12-09 16:28] VITALS: BP 125/77; PULSE 88; RESP 16; TEMP 36.4; O2SAT 99
--- NOTE | 2023-12-09 16:49 | CASEMGMT ---
Social Work Assessment Labor and Delivery Unit Patient Address: [address] [place] [address] Phone number: [phone] Date of Referral: 12/09/2023 Time of Referral:? 12:20 Referred By: Miguel Date of Intervention: ?12/09/2023 Time of Intervention:? 13:30 Reason for Referral:? Mental Health History obtained from: medical records and mother of baby (MOB) and FOB Household composition: MOB, FOB ? Gregg Heaton, and 5 year old daughter Fina Patient's parent/guardian status: MOB and FOB are together and this is their second daughter together. Medical History: MOB received adequate care. One prior child and denies medical concerns for self and child. Baby girl, , 8/9 apgars and 7lbs 1oz. MOB plans to bottle feed. Educational Status: No literacy concerns Financial Status: No financial concerns Infant Supplies: Parents report having all necessary supplies and equipment Childcare/Caregiver(s):? MOB will care for both children, has large family to help Transportation:? No concerns Programs/Agencies Involved: ??[facility] Children Services/Legal Issues:??? None Behavioral Health Issues: ?? Mental Health History: Mother denies any major mental health concerns/history, reports concerns as a teenager but not recently. Denies having PPD/anxiety. Substance Use History:?? Denies any current or recent use. Family History: Denies??? Drug Screens: ?None Family/Social Stressors:? Denies Support Systems: Grandparents are involved and supportive and MOB reports family of 9 brothers and sisters that are all close. Depression: Education and resources provided and parents receptive Shaken Baby: Education and resources provided and parents receptive Safe Sleeping: Education and resources provided and parents receptive ASSESSMENT: MOB and FOB appropriate. No immediate concerns or needs at this time.? PLAN:? No other services requested or indicated. Ese Odom [employer]OR [employer], [employer]
== END 2023-12-09 17:05 | disposition home or self-care (01) | DRG 560 ==
PROVIDERS: Admitting Provider Obstetrics & Gynecology; PCP Family Medicine; Referring Provider Obstetrics & Gynecology; Visit Provider Obstetrics & Gynecology
DX: O26.86 Pruritic urticarial papules and plaques of pregnancy (PUPPP) (principal); Z37.0 Single live birth; F17.210 Nicotine dependence, cigarettes, uncomplicated; O99.334 Smoking (tobacco) complicating childbirth; O99.02 Anemia complicating childbirth; O26.893 Other specified pregnancy related conditions, third trimester; Z67.41 Type O blood, Rh negative; Z3A.40 40 weeks gestation of pregnancy
CPT/HCPCS: 59025; 59050; 84112; 85025; 85461; 86780; 86850; 86900; 86901; 90384; 99221; J7120; G0378; J2790; J2791